=== PATIENT | male | born 1985 | race Caucasian/White ===

== ENCOUNTER 2018-06-03 16:15 | Emergency (ER) | payer OTHER ==
[2018-06-03 16:16] VITALS: BMI 20.9
[2018-06-03 16:28] VITALS: BP 116/66; PULSE 82; RESP 18; TEMP 98.2
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
[2018-06-03 17:56] VITALS: O2SAT 98
== END 2018-06-03 17:55 | disposition home or self-care (01) ==
LOC: ED 16:15
DX: S16.1XXA Strain of muscle, fascia and tendon at neck level, initial encounter (principal); S10.91XA Abrasion of unspecified part of neck, initial encounter; X58.XXXA Exposure to other specified factors, initial encounter
CPT/HCPCS: 96372; 99283; J1885